=== PATIENT | female | born 1940 | race Caucasian/White ===

== ENCOUNTER → 2018-02-09 14:56 | Outpatient (CLI) | payer MEDICARE, OTHER | END | disposition home or self-care (01) | LOC: D.CT 14:56 | DX: I63.9 Cerebral infarction, unspecified (principal) ==

== ENCOUNTER 2018-03-24 08:00 | Outpatient (CLI) | payer MEDICARE, OTHER ==
[~2018-03-24] VITALS: Ht 175.3 cm; Wt 69.4 kg
[2018-03-24] MEDS ORDERED: FISH OIL 1,0001 CA1 PO (16:06)
[2018-03-24] MEDS ORDERED: BAYER CHEWABLE81 MG PO (16:06)
[2018-03-24] MEDS ORDERED: COZAAR100 MG PO (16:07)
[2018-03-24] MEDS ORDERED: MOBIC7.5 MG PO (16:07)
[2018-03-24] MEDS ORDERED: MYSOLINE250 MG PO (16:07)
[2018-03-24] MEDS ORDERED: CELEXA20 MG PO (16:07)
[2018-03-24] MEDS ORDERED: PLAVIX75 MG PO (16:08)
[2018-03-24] MEDS ORDERED: THERALITH XR T1 EACH PO (16:08)
[2018-03-24] MEDS ORDERED: SYNTHROID50 MCG PO (16:09)
[2018-03-24] MEDS ORDERED: PROTONIX40 MG PO (16:09)
[2018-03-27 05:52] VITALS: BP 134/71; Ht 175.3 cm; Wt 69.4 kg
== END 2018-03-24 08:01 | disposition home or self-care (01) ==
LOC: D.OPS 08:00 → D.US 09:20 → EDSEX 09:20 → D.SDCHOLD 09:30 → EDSTATUS 09:30 → D.US 09:30
DX: I65.22 Occlusion and stenosis of left carotid artery (principal)

== ENCOUNTER 2018-03-27 05:00 | Inpatient (IN) | payer MEDICARE, OTHER ==
[2018-03-24 15:41] LABS: MCH 32.4 pg (26.0-34.0); MCHC 33.3 g/dL (31.0-37.0); MCV 97.3 fL (80.0-100.0); MEAN PLATELET VOLUME 10.3 fL (7.4-10.4); RBC 4.01 10x6/uL (4.20-6.10); RDW 13.3 % (11.5-14.5); WBC 4.8 10x3/uL (4.8-10.8)
[2018-03-24 15:54] LABS: APTT 27.8 SECONDS (22.8-39.4); INR 1.13 (0.85-1.17)
[2018-03-24 16:03] LABS: ALBUMIN 3.7 g/dL (3.4-5.0); ALKALINE PHOSPHATASE 70 U/L (46-116); ALT (SGPT) 45 U/L (10-68); BILIRUBIN - TOTAL 0.26 mg/dL (0.2-1.3); CALC OSMOLALITY 284 mosm/kg (275-300); CALCIUM 8.6 mg/dL (8.5-10.1); CARBON DIOXIDE 28.6 mmol/L (21.0-32.0); CHLORIDE - SERUM 105 mmol/L (98-107); CREATININE - SERUM 0.8 mg/dL (0.6-1.3); POTASSIUM - SERUM 4.3 mmol/L (3.5-5.1); PROTEIN - SERUM 7.4 g/dL (6.4-8.2); SODIUM 143 mmol/L (136-145); UREA NITROGEN 18 mg/dL (7-18); eGFR NON AFRICAN AMERICAN > 90 mL/min (90-120)
[2018-03-24 16:14] LABS: GLUCOSE 63 mg/dL (74-106)
[~2018-03-27] VITALS: Ht 175.3 cm; Wt 73.9 kg
[2018-03-27] VITALS (45 sets, daily range): BP systolic 101–146; BP diastolic 41–73; BMI 24.1
--- NOTE | ~2018-03-27 | OP ---
PATIENT NAME: AIRAM GUILLEN MEDICAL RECORD: [id number] :42 LOCATION:[facility] [id number] ADMISSION DATE:03/27/18 SURGEON: ORLANDO GENAO MD DATE OF OPERATION: 03/27/2018 SURGEON: Orlando Genao MD ANESTHESIA: General, Dr. Mitchell. OPERATION PERFORMED: Left carotid endarterectomy with patch angioplasty. PREOPERATIVE DIAGNOSIS: Critical left internal carotid artery. POSTOPERATIVE DIAGNOSIS: Critical left internal carotid artery. INDICATION FOR OPERATION: Critical left internal carotid artery stenosis. FINDINGS AT OPERATION: Critical left internal carotid artery stenosis. There were no EEG changes with clamping or unclamping of the carotid artery. ESTIMATED BLOOD LOSS: Less than 100 mL. DESCRIPTION OF PROCEDURE: After informed consent, adequate preoperative medication evaluation, the patient was brought to the operating room, placed on the table in the supine position. After induction of general endotracheal anesthesia and application of appropriate monitoring devices, the left neck and chest were prepped and draped in a sterile field, utilizing Betadine scrub, alcohol, and Betadine solution. A Betadine-impregnated drape was also used. An oblique incision was made in the skin crease. Dissection carried down the fascia. Hemostasis maintained with electrocautery. Facial vein was identified and divided. Utilizing sharp dissection, the common carotid, internal and external carotid arteries were dissected free from surrounding structures, protecting the neurological structures. The patient was given a calculated dose of heparin. After 3 minutes, clamps were applied. After 2 minutes, no EEG change. The arteriotomy was made and extended with Fisher scissors. Artery underwent endarterectomy sharply. Artery underwent extensive debridement and irrigation. Utilizing a vascular patch, a running 7-0 Prolene suture, the arteriotomy was closed with patch angioplasty technique. All maneuvers to remove trapped air were performed. The clamps were removed sequentially. There were no EEG changes. The patient was given a calculated dose of protamine to reverse the heparin. Hemostasis was achieved. A #7 Boni-Andrews drain was left in depths of wound and brought through the base of the neck. Neck was again irrigated. Instrument count and sponge count were correct times 2. Neck was closed in layers utilizing 3-0 Vicryl on the platysma, 5-0 subcuticular Monocryl on the skin. Sterile dressings were applied. The patient tolerated the procedure well and transferred to the CV ICU in satisfactory condition. TRANSINT:[id number] Voice Confirmation ID: [id number] DOCUMENT ID: [id number] OPERATIVE REPORT [id number] AIRAM GUILLEN EDWARD MD CC: [id number] DICTATION DATE: 03/27/181103 LEATHER FINISHER: 03/27/18 1238 ADM IN [facility] [address] [place] [address]
[~2018-03-27 05:00] MED LIST: BAYER CHEWABLE81 MG PO; CELEXA20 MG PO; COZAAR100 MG PO; FISH OIL 1,0001 CA1 PO; MOBIC7.5 MG PO; MYSOLINE250 MG PO; PLAVIX75 MG PO; PROTONIX40 MG PO; SYNTHROID50 MCG PO; THERALITH XR T1 EACH PO
[2018-03-27 09:32] LABS: APPEARANCE CLEAR (CLEAR); BILIRUBIN NEGATIVE (NEGATIVE); COLOR YELLOW (YELLOW); GLUCOSE NEGATIVE (NEGATIVE); KETONE NEGATIVE (NEGATIVE); NITRITE NEGATIVE (NEGATIVE); PROTEIN NEGATIVE (NEGATIVE); SPECIFIC GRAVITY 1.015 (1.005-1.020); UROBILINOGEN NORMAL (NORMAL)
[2018-03-27 09:33] LABS: BACTERIA FEW /hpf (NONE SEEN); MUCUS <1+ /lpf (NONE SEEN); RED CELLS - URINE OCC /hpf (0-5)
[2018-03-27 20:32] LABS: APPEARANCE CLEAR (CLEAR); BILIRUBIN NEGATIVE (NEGATIVE); COLOR YELLOW (YELLOW); GLUCOSE NEGATIVE (NEGATIVE); KETONE NEGATIVE (NEGATIVE); NITRITE NEGATIVE (NEGATIVE); PROTEIN NEGATIVE (NEGATIVE); SPECIFIC GRAVITY 1.015 (1.005-1.020); UROBILINOGEN NORMAL (NORMAL)
[2018-03-27 20:33] LABS: RED CELLS - URINE 0-5 /hpf (0-5)
[2018-03-27 20:35] LABS: BACTERIA FEW /hpf (NONE SEEN)
[2018-03-28] VITALS (92 sets, daily range): BP systolic 103–156; BP diastolic 28–855; Ht 175.3 cm; Wt 73.9 kg
[2018-03-29] VITALS (27 sets, daily range): BP systolic 95–148; BP diastolic 24–79
--- NOTE | 2018-03-29 13:52 | MORECARE ---
CASE MANAGEMENT DISCHARGE SUMMARY PATIENT: AIRAM GUILLEN UNIT: [id number] ADM DATE: 03/27/18 AGE: 78 : 41 SEX: M ROOM/BED: D[facility] AUTHOR: MIRA BUSTOS PHYSICIAN: REFERRING PHYSICIAN: OSWALD GENAO MD DATE OF SERVICE: 03/29/18 Discharge Plan Patient Name: AIRAM GUILLEN [facility] [facility] 1940 Planned Disposition: Home Anticipated Discharge Date: Discharge Date: 03/29/2018 Expected LOS: Initial Reviewer: [id number] Initial Review Date: 03/27/2018 Generated: 03/29/18 2:51 pm Patient Name: AIRAM GUILLEN Page 67078 at 1352 All edits/amendments must be made on the electronic document DICTATION DATE: 03/29/18 1351 LINE SERVICE SUPERVISOR: TRISTIAN 03/29/18 1351 RPT#: [id number] DC DATE:03/29/18 STATUS: DIS IN [facility] [address] [place] [address] END OF REPORT
--- NOTE | 2018-03-29 14:01 | MORECARE ---
CASE MANAGEMENT DISCHARGE SUMMARY PATIENT: AIRAM GUILLEN UNIT: [id number] ADM DATE: 03/27/18 AGE: 78 : 41 SEX: M ROOM/BED: D[facility] AUTHOR: JULI,DOC PHYSICIAN: REFERRING PHYSICIAN: OSWALD GENAO MD DATE OF SERVICE: 03/29/18 Discharge Plan Patient Name: AIRAM GUILLEN Facility: [facility]:[place] : 1940 Planned Disposition: Home Anticipated Discharge Date: Discharge Date: 03/29/2018 Expected LOS: Initial Reviewer: [id number] Initial Review Date: 03/27/2018 Generated: 03/29/18 3:01 pm Comments DCP- Discharge Planning Updated by [email or web address]: Beatriz Agosto on 03/29/18 12:[address] Patient Name: AIRAM GUILLEN Admission Status: Elective Accout number: [id number] Admission Date: 03-27-2018 : 1940 Admission Diagnosis:OCCLUSION AND STENOSIS OF LEFT CAROTID ARTERY Attending: OSWALD GENAO Current LOS: 2 Anticipated DC Date: Planned Disposition: Home Primary Insurance: MEDICARE A & B Discharge Planning Comments: CM met with patient at bedside after obtaining verbal consent. Patient states he plans on returning to his home with his upon discharge. Patient denies in medical equipment in the home and denies any home health services. Patient denies in discharge needs. IMM explained and served @ 1115 . CM will continue to follow and assist as needed with discharge planning / needs. Grid Maker: Beatriz Agosto DCPIA - Discharge Planning Initial Assessment Updated by [email or web address]: Beatriz Agosto on 03/29/18 1:54 pm * Is the patient Alert and Oriented? Yes * How many steps to enter\exit or inside your home? * PCP DAMIAN REZA * Pharmacy [facility] * Preadmission Environment Home with Family * ADLs Independent * Equipment None * List name and contact numbers for known caregivers / representatives who currently or will assist patient after discharge: ANTHONY GUILLEN - [facility] - [phone] * Verbal permission to speak to the caregivers and representatives has been obtained from the patient. Yes * Community resources currently utilized None * Additional services required to return to the preadmission environment? No * Can the patient safely return to the preadmission environment? Yes * Has this patient been hospitalized within the prior 30 days at any hospital? No Coverage Notice Reviewer: [id number] Rickey Agosto Notice Issued Date-Time: 03/29/2018 11:15 Notice Type: IM Discharge Notice Notice Delivered To: Patient Relationship to Patient: Self Wool Sorter Name: Delivery Method: HAND - Hand Delivered Maia Days: Prior Verbal Notification: Recipient Understood Notice: Yes Recipient Signature: Yes Med Rec Note Co-signed by Attending: Coverage Notice Comment: Last DP export: 03/29/18 12:52 p Patient Name: AIRAM GUILLEN Page 19326 at 1401 All edits/amendments must be made on the electronic document DICTATION DATE: 03/29/18 1400 JACKSPOOLER: TRISTIAN 03/29/18 1400 RPT#: [id number] DC DATE:03/29/18 STATUS: DIS IN [facility] [address] [place] [address] END OF REPORT
--- NOTE | 2018-03-30 13:55 | MORECARE ---
CASE MANAGEMENT DISCHARGE SUMMARY PATIENT: AIRAM GUILLEN UNIT: [id number] ADM DATE: 03/27/18 AGE: 78 : 41 SEX: M ROOM/BED: D.[facility] AUTHOR: JULI,DOC PHYSICIAN: REFERRING PHYSICIAN: OSWALD GENAO MD DATE OF SERVICE: 03/30/18 Discharge Plan Patient Name: AIRAM GUILLEN Facility: [facility]:[place] : 1940 Planned Disposition: Home Anticipated Discharge Date: Discharge Date: 03/29/2018 Expected LOS: Initial Reviewer: [id number] Initial Review Date: 03/27/2018 Generated: 03/30/18 2:55 pm Comments DCP- Discharge Planning Updated by [email or web address]: Beatriz Agosto on 03/29/18 12:[address] Patient Name: AIRAM GUILLEN Admission Status: Elective Accout number: [id number] Admission Date: 03-27-2018 : 1940 Admission Diagnosis:OCCLUSION AND STENOSIS OF LEFT CAROTID ARTERY Attending: OSWALD GENAO Current LOS: 2 Anticipated DC Date: Planned Disposition: Home Primary Insurance: MEDICARE A & B Discharge Planning Comments: CM met with patient at bedside after obtaining verbal consent. Patient states he plans on returning to his home with his upon discharge. Patient denies in medical equipment in the home and denies any home health services. Patient denies in discharge needs. IMM explained and served @ 1115 . CM will continue to follow and assist as needed with discharge planning / needs. Knitting Machine Fixer: Beatriz Agosto DCPIA - Discharge Planning Initial Assessment Updated by [email or web address]: Beatriz Agosto on 03/29/18 1:54 pm * Is the patient Alert and Oriented? Yes * How many steps to enter\exit or inside your home? * PCP DAMIAN REZA * Pharmacy [facility] * Preadmission Environment Home with Family * ADLs Independent * Equipment None * List name and contact numbers for known caregivers / representatives who currently or will assist patient after discharge: ANTHONY GUILLEN - [facility] - [phone] * Verbal permission to speak to the caregivers and representatives has been obtained from the patient. Yes * Community resources currently utilized None * Additional services required to return to the preadmission environment? No * Can the patient safely return to the preadmission environment? Yes * Has this patient been hospitalized within the prior 30 days at any hospital? No Coverage Notice Reviewer: [id number] Rickey Agosto Notice Issued Date-Time: 03/29/2018 11:15 Notice Type: IM Discharge Notice Notice Delivered To: Patient Relationship to Patient: Self Program Manager Rn Name: Delivery Method: HAND - Hand Delivered Maia Days: Prior Verbal Notification: Recipient Understood Notice: Yes Recipient Signature: Yes Med Rec Note Co-signed by Attending: Coverage Notice Comment: Last DP export: 03/29/18 1:01 p Patient Name: AIRAM GUILLEN Page 91847 at 1355 All edits/amendments must be made on the electronic document DICTATION DATE: 03/30/18 1354 TEAM SPORTS SALES ASSOCIATE: TRISTIAN 03/30/18 1354 RPT#: [id number] DC DATE:03/29/18 STATUS: DIS IN [facility] [address] [place] [address] END OF REPORT
== END 2018-03-29 12:34 | disposition home or self-care (01) | DRG 39 ==
LOC: D.SDCHOLD 05:00 → D.CVICU 05:00 → D.SDCHOLD 07:30 → D.CVICU 08:20
PROVIDERS: ADMIT Internal Medicine Cardiovascular Disease
PROC: 03CL0ZZ Extirpation of Matter from Left Internal Carotid Artery, Open Approach (ICD-10-PCS; principal; 2018-03-27)
PROC: 03UL0JZ Supplement Left Internal Carotid Artery with Synthetic Substitute, Open Approach (ICD-10-PCS; 2018-03-27)
DX: I65.22 Occlusion and stenosis of left carotid artery (principal); I10 Essential (primary) hypertension; M19.90 Unspecified osteoarthritis, unspecified site; I69.322 Dysarthria following cerebral infarction; E03.9 Hypothyroidism, unspecified

== ENCOUNTER → 2018-09-04 14:01 | Outpatient (CLI) | payer MEDICARE, OTHER ==
[2018-03-28 10:32] VITALS: BMI 24.0
== END | disposition home or self-care (01) ==
LOC: D.US 14:01
PROVIDERS: ATTEND Internal Medicine Cardiovascular Disease
DX: I65.23 Occlusion and stenosis of bilateral carotid arteries (principal)

== ENCOUNTER → 2019-08-27 12:14 | Outpatient (CLI) | payer MEDICARE, OTHER ==
[2018-03-28 10:32] VITALS: BMI 24.0
== END | disposition home or self-care (01) ==
LOC: D.US 12:14
PROVIDERS: ATTEND Internal Medicine Cardiovascular Disease
DX: I65.23 Occlusion and stenosis of bilateral carotid arteries (principal)

== ENCOUNTER 2019-10-30 13:32 | Emergency (ER) | payer MEDICARE, OTHER ==
[~2019-10-30] VITALS: Ht 175.3 cm; Wt 67.3 kg
[2019-10-30 13:41] VITALS: Ht 175.3 cm; Wt 67.3 kg
[2019-10-30] MEDS ORDERED: NEXIUM20 MG PO (13:45)
[2019-10-30] MEDS ORDERED: ARTHROTEC 501 TAB.EC PO (17:45)
[2019-10-30] MEDS ORDERED: VENTOLIN HFA [SP8 GM INH (17:45)
[2019-10-30 18:09] VITALS: BP 151/69
== END 2019-10-30 18:09 | disposition home or self-care (01) ==
LOC: D.ER 13:32
DX: M25.562 Pain in left knee (principal); J40 Bronchitis, not specified as acute or chronic; Z86.73 Personal history of transient ischemic attack (TIA), and cerebral infarction without residual deficits; E03.9 Hypothyroidism, unspecified; I10 Essential (primary) hypertension; K21.9 Gastro-esophageal reflux disease without esophagitis; R05 Cough

== ENCOUNTER → 2020-07-07 10:44 | Outpatient (CLI) | payer MEDICARE, OTHER ==
[2019-10-30 13:41] VITALS: BMI 21.9
[~2020-07-07 10:44] MED LIST changes: +ARTHROTEC 501 TAB.EC PO; +NEXIUM20 MG PO; +VENTOLIN HFA [SP8 GM INH
== END | disposition home or self-care (01) ==
LOC: D.US 10:44
PROVIDERS: ATTEND Internal Medicine Cardiovascular Disease
DX: I65.23 Occlusion and stenosis of bilateral carotid arteries (principal)

== ENCOUNTER → 2020-08-04 09:20 | Outpatient (CLI) | payer MEDICARE, OTHER ==
[2019-10-30 13:41] VITALS: BMI 21.9
== END | disposition home or self-care (01) ==
LOC: D.HCCARDIO 09:20
PROVIDERS: ATTEND Internal Medicine Cardiovascular Disease
DX: I20.9 Angina pectoris, unspecified (principal)